=== PATIENT | female | born 1955 | race Caucasian/White ===

== ENCOUNTER 2019-04-27 02:00 | Emergency (ER) | payer OTHER ==
[~2019-04-27] VITALS: Ht 167.6 cm; Wt 72.7 kg
[~2019-04-27 02:00] MED LIST: AZIT250T PO
[2019-04-27 02:06] VITALS: Ht 167.6 cm; Wt 72.7 kg
--- NOTE | 2019-04-27 03:48 | ERD ---
ER Documentation Chief Complaint Chief Complaint R90. SOB X 1 DAY. FROM SNF. HPI This is a 63-year-old female presents to the emergency room for evaluation of shortness of breath and inability to take her medication. The patient was transferred today to a long term facility from [facility]. The patient does states she has a history of polymyositis and is seeing a raisin washer and receiving chemotherapy. She states her blood pressure was elevated when she to her [facility] and they did not have her medications as so she became nervous and panicked and the facility called 911 to transfer the patient to the ER. ROS All systems reviewed and are negative except as per history of present illness. PMhx/Soc Hx Respiratory Disorders: Yes (ASTHMA, COPD) Hx Cardiac Disorders: Yes (HTN, CHF, HTN, CAD) Hx Psychiatric Problems: No Hx Miscellaneous Medical Probl: No Hx Alcohol Use: No Hx Substance Use: No Hx Tobacco Use: No Smoking Status: Never smoker Physical Exam Vitals Vital Signs Date Temp Pulse Resp B/P (MAP) Pulse Ox O2 O2 Flow FiO2 Time Delivery Rate 04/27/19 98.7 96 24 166/90 99 02:06 (115) 04/27/19 Nasal 2 02:05 Cannula Physical Exam Const: No acute distress Head: Atraumatic Eyes: Normal Conjunctiva ENT: Normal External Ears, Nose and Mouth. Neck: Full range of motion. No meningismus. Resp: Clear to auscultation bilaterally Cardio: Regular rate and rhythm, no murmurs Abd: Soft, non tender, non distended. Normal bowel sounds Skin: No petechiae or rashes Back: No midline or flank tenderness Ext: No cyanosis, or edema Neur: Awake and alert Psych: Normal Mood and Affect Result Diagram: 04/27/19 0217 04/27/19 0217 Results 24 hrs Laboratory Tests Test 04/27/19 02:17 White Blood Count 11.8 10^3/ul Red Blood Count 4.81 10^6/ul Hemoglobin 13.5 g/dl Hematocrit 41.6 % Mean Corpuscular Volume 86.5 fl Mean Corpuscular Hemoglobin 28.1 pg Mean Corpuscular Hemoglobin Concent 32.5 g/dl Red Cell Distribution Width 16.9 % Platelet Count 331 10^3/UL Mean Platelet Volume 8.9 fl Immature Granulocytes % 0.700 % Neutrophils % 66.8 % Lymphocytes % 20.2 % Monocytes % 11.7 % Eosinophils % 0.4 % Basophils % 0.2 % Nucleated Red Blood Cells % 0.0 /100WBC Immature Granulocytes # 0.080 10^3/ul Neutrophils # 7.9 10^3/ul Lymphocytes # 2.4 10^3/ul Monocytes # 1.4 10^3/ul Eosinophils # 0.1 10^3/ul Basophils # 0.0 10^3/ul Nucleated Red Blood Cells # 0.0 10^3/ul Sodium Level 136 mmol/L Potassium Level 4.4 mmol/L Chloride Level 99 mmol/L Carbon Dioxide Level 28 mmol/L Anion Gap 9 Blood Urea Nitrogen 34 mg/dl Creatinine 0.43 mg/dl Est Glomerular Filtrat Rate mL/min > 60 mL/min Glucose Level 166 mg/dl Calcium Level 9.6 mg/dl Troponin I 0.016 ng/ml Current Medications Medications Dose Sig/Alta Start Time Status Last (Trade) Ordered Route PRN Stop Time Admin Dose Reason Admin Carvedilol 3.125 mg ONCE ONCE 04/27/19 DC 04/27/19 (Coreg) PO 03:30 04/27/19 03:24 03:31 Procedures/MDM EKG: Rate/Rhythm: [Normal Sinus Rhythm] QRS, ST, T-waves: [No changes consistent w/ acute ischemia] Impression: [No evidence of ischemia or arrhythmia] Chest X-ray 1V Interpreted by me: Soft Tissue: No acute abnormalities Bones: No acute abnormalities Mediastinum/Cardiac Silhouette/Lungs: Possible retrocardiac pneumonia This 63-year-old female presents to the emergency room after being sent to the ER from her nursing facility for evaluation of mild shortness of breath and anxiety. The patient was recently transferred to that nursing facility and they did not have her medications yet. The patient is supposed to receive carvedilol 3.125 mg twice daily and was unable to receive her nighttime dosing of this medication. The patient became slightly anxious due to that and was sent to the ER. On my evaluation the patient is afebrile, nontoxic-appearing and hemodynamically stable. She is not hypoxic. Lab work was obtained which is normal however her chest x-ray shows possible retrocardiac pneumonia. The patient has no fevers, no cough no chills but given her age the patient was given azithromycin in the emergency room. We have contacted the nursing facility and they state that the patient will have her medications at the nursing facility at 7 AM. The patient does not need any at nighttime dosing of medication and will be discharged into the care of the nursing facility with a prescription for azithromycin. Departure Diagnosis: Primary Impression: Shortness of breath Additional Impression: Pneumonia Condition: Fair KRISTEN NGUYEN DO Apr 27, 2019 03:48
[2019-04-27] MEDS ORDERED: AZITHROMYCIN 500 MG TAB PO ONE (04:00)
[2019-04-27] MEDS ORDERED: ONDANSETRON 4 MG INJ IV STA (04:58)
[2019-04-27] MEDS ORDERED: ONDANSETRON 4 MG INJ ONE (04:59)
[2019-04-27 05:18] VITALS: BP 115/69; PULSE 70; RESP 14
== END 2019-04-27 05:18 | disposition home or self-care (01) ==
LOC: E/R 02:00
DX: J18.9 Pneumonia, unspecified organism (principal); I11.0 Hypertensive heart disease with heart failure; I50.9 Heart failure, unspecified; I25.10 Atherosclerotic heart disease of native coronary artery without angina pectoris; J44.1 Chronic obstructive pulmonary disease with (acute) exacerbation
CPT/HCPCS: 36415; 71045; 80048; 84484; 85025; 93005; 96374; 99285; J2405